=== PATIENT | male | born 1960 | race Caucasian/White ===

== ENCOUNTER 2016-04-24 09:52 | Emergency (ER) | payer SELFPAY | END 2016-04-24 11:20 | disposition home or self-care (01) | LOC: ED 09:52 | DX: Z76.0 Encounter for issue of repeat prescription (principal); Z86.718 Personal history of other venous thrombosis and embolism; Z79.01 Long term (current) use of anticoagulants; Z21 Asymptomatic human immunodeficiency virus [HIV] infection status ==